=== PATIENT | female | born 1940 | race Caucasian/White ===

== ENCOUNTER 2020-12-08 06:25 | Day surgery (SDC) | payer MEDICARE, OTHER ==
[2020-12-06 16:05] LABS: COVID AG,FIA SOURCE NASOPHARYNGEAL
[~2020-12-08] VITALS: Ht 154.9 cm; Wt 80.9 kg
[~2020-12-08 06:25] MED LIST: SODIUM CHLORIDE 0.9% 1,000 ML ONE
[2020-12-08] MEDS ORDERED: SODIUM CHLORIDE 0.9% 1,000 ML IV ONE (06:30)
[2020-12-08] MEDS ORDERED: ATOR20TA86 PO (08:02)
[2020-12-08] MEDS ORDERED: CETI-450 PO (08:02)
[2020-12-08] MEDS ORDERED: MONT-35 PO (08:02)
[2020-12-08] MEDS ORDERED: METO50 PO (08:02)
[2020-12-08] MEDS ORDERED: BUDE10.2 IH (08:02)
[2020-12-08] MEDS ORDERED: AMLO-257 PO (08:02)
[2020-12-08] MEDS ORDERED: CALC1CAP22 PO (08:02)
[2020-12-08] MEDS ORDERED: IPRA4AER IH (08:02)
[2020-12-08] MEDS ORDERED: HYDR25TA2 PO (08:02)
[2020-12-08] MEDS ORDERED: OMEG-102 PO (08:02)
[2020-12-08] MEDS ORDERED: LISI-894 PO (08:02)
[2020-12-08] MEDS ORDERED: ASCO500 PO (08:02)
[2020-12-08] MEDS ORDERED: ALEN70TA65 PO (08:02)
[2020-12-08] MEDS ORDERED: ASPI-1450 PO (08:02)
[2020-12-08] MEDS ORDERED: PANT-31 PO (08:02)
[2020-12-08] MEDS ORDERED: MIDAZOLAM HCL 5 MG/ML VIAL ONE (08:05)
[2020-12-08] MEDS ORDERED: FentaNYL CITRATE PF 100 MCG/2 ML VIAL ONE (08:05)
[2020-12-08] MEDS ORDERED: MethylPREDNISolone SOD SUCC 125 MG/2 ML VIAL IVP ONE (09:00)
[2020-12-08] MEDS ORDERED: MethylPREDNISolone SOD SUCC 125 MG/2 ML VIAL ONE (09:16)
[2020-12-08 10:15] LABS: BASOPHILS % (AUTO) 0.6 % (0.0-2.0); EOSINOPHILS % (AUTO) 1.7 % (1.0-6.0); HEMATOCRIT 41.8 % (36-46); HEMOGLOBIN 13.4 g/dL (12.0-16.0); LYMPHOCYTES # (AUTO) 2.2 K/uL (1.0-4.8); LYMPHOCYTES % (AUTO) 28.1 % (22.0-44.0); MEAN CORPUSCULAR HEMOGLOBIN 27.1 pg (26.0-34.0); MEAN CORPUSCULAR VOLUME 85 fL (80-100); MONOCYTES # (AUTO) 0.6 K/uL (0.1-1.0); MONOCYTES % (AUTO) 7.3 % (2.0-9.0); NEUTROPHILS % (AUTO) 62.3 % (40.0-70.0); PLATELET COUNT (AUTO) 223 K/uL (150-450); RED BLOOD CELL COUNT(AUTO) 4.93 MIL/uL (4.00-5.20); RED CELL DISTRIBUTION WIDTH 12.7 % (11.5-14.5)
[2020-12-08 10:24] LABS: CALCIUM, TOTAL 8.9 mg/dL (8.8-10.5); CREATININE 0.92 mg/dL (0.60-1.30)
[2020-12-08 10:26] LABS: ALBUMIN 3.6 g/dL (3.4-5.0)
[2020-12-08 11:01] LABS: BILIRUBIN,TOTAL 0.5 mg/dL (0.1-1.0); TOTAL PROTEIN, SERUM 6.8 g/dL (6.4-8.2)
[2020-12-08] MEDS ORDERED: ALBUTEROL SULFATE 2.5 MG/0.5 ML NEB SOLUTION NEB ONE (12:00)
[2020-12-08] MEDS ORDERED: LIDOCAINE 4% 50 ML SOLUTION TP ONE (12:00)
[2020-12-08] MEDS ORDERED: BENZOCAINE 20% 50 MCG/SPRAY 57 GM TP ONE (12:00)
[2020-12-08] MEDS ORDERED: LIDOCAINE 2% 30 ML JELLY TP ONE (12:00)
[2020-12-08] MEDS ORDERED: OXYGEN THERAPY IH SCH (20:00)
== END 2020-12-08 10:30 | disposition home or self-care (01) ==
LOC: SURGERY 06:25
PROVIDERS: ATTEND Internal Medicine Critical Care Medicine
DX: J38.4 Edema of larynx (principal); T78.3XXA Angioneurotic edema, initial encounter; J45.909 Unspecified asthma, uncomplicated; I10 Essential (primary) hypertension; Z79.899 Other long term (current) drug therapy; Y83.8 Other surgical procedures as the cause of abnormal reaction of the patient, or of later complication, without mention of misadventure at the time of the procedure; Z95.0 Presence of cardiac pacemaker; Z98.890 Other specified postprocedural states
CPT/HCPCS: 31623; 31624; 36415; 71045; 80053; 83880; 85025; 87015; 87070; 87077; 87101; 87186; 87205; 87206; 87220; 87426; 88108; 88184; 88185; 88312; C9803; J2250; J2930; J3010; J7030; J7613; Z7610

== ENCOUNTER → 2022-10-18 | Day surgery (SDC) | payer MEDICARE, OTHER ==
[~2022-10-18] VITALS: Ht 160 cm; Wt 75.0 kg
[~2022-10-18] MED LIST changes: +ALEN70TA65 PO; +AMLO-257 PO; +ASCO500 PO; +ASPI-1450 PO; +ATOR20TA86 PO; +BENZOCAINE 20% 50 MCG/SPRAY 57 GM TP ONE; +BUDE10.2 IH; +CALC1CAP22 PO; +CETI-450 PO; +HYDR25TA2 PO; +IPRA4AER IH; +LIDOCAINE 2% 11 ML JELLY TP ONE; +LIDOCAINE 4% 50 ML SOLUTION TP ONE; +LISI-894 PO; +METO50 PO; +MONT-35 PO; +MethylPREDNISolone SOD SUCC 125 MG/2 ML VIAL IVP ONE; +OMEG-102 PO; +PANT-31 PO; +ROSU10TA72 PO; +SODIUM CHLORIDE 0.9% 1,000 ML IV ONE
[2022-10-18 07:20] LABS: COVID AG,FIA SOURCE NASAL SWAB
== END | disposition still patient (30) ==
LOC: SURGERY 06:28
PROVIDERS: ATTEND Internal Medicine Critical Care Medicine
DX: R05.3 Chronic cough (principal); Z20.822 Contact with and (suspected) exposure to COVID-19; I10 Essential (primary) hypertension; J45.909 Unspecified asthma, uncomplicated; E78.00 Pure hypercholesterolemia, unspecified; Z79.82 Long term (current) use of aspirin; Z79.899 Other long term (current) drug therapy
CPT/HCPCS: 31623; 88112; 87101; 87220; 87070; 87186; 31624; 71045; 87015; 87426; 87206; J2930; Q9967; J7030; C9803; Z7610

== ENCOUNTER 2025-01-26 05:58 | Day surgery (SDC) | payer MEDICARE, OTHER ==
[~2025-01-26] VITALS: Ht 157.5 cm; Wt 77.3 kg
[~2025-01-26 05:58] MED LIST changes: -ATOR20TA86 PO; -BENZOCAINE 20% 50 MCG/SPRAY 57 GM TP ONE; -HYDR25TA2 PO; -LIDOCAINE 2% 11 ML JELLY TP ONE; -LIDOCAINE 4% 50 ML SOLUTION TP ONE; -MethylPREDNISolone SOD SUCC 125 MG/2 ML VIAL IVP ONE; -SODIUM CHLORIDE 0.9% 1,000 ML IV ONE; -SODIUM CHLORIDE 0.9% 1,000 ML ONE
[2025-01-26] MEDS ORDERED: BENZOCAINE 20% 50 MCG/SPRAY 57 GM TP ONE (05:59)
[2025-01-26] MEDS ORDERED: LIDOCAINE 4% 50 ML SOLUTION TP ONE (05:59)
[2025-01-26] MEDS ORDERED: LIDOCAINE 2% 11 ML JELLY TP ONE (05:59)
[2025-01-26] MEDS ORDERED: ALBUTEROL SULFATE 2.5 MG/0.5 ML NEB SOLUTION NEB ONE (05:59)
[2025-01-26] MEDS: SODIUM CHLORIDE 0.9% 1,000 ML IV ONE (08:48)
[2025-01-26] MEDS ORDERED: FentaNYL CITRATE PF 100 MCG/2 ML VIAL ONE (09:00)
[2025-01-26] MEDS ORDERED: MIDAZOLAM HCL 2 MG/2 ML VIAL ONE (09:00)
[2025-01-26] MEDS ORDERED: MethylPREDNISolone SOD SUCC 125 MG/2 ML VIAL ONE (09:02)
[2025-01-26 09:15] VITALS: PULSE 78; RESP 16; O2SAT 100
[2025-01-26] MEDS: MethylPREDNISolone SOD SUCC 125 MG/2 ML VIAL IVP ONE (09:50)
== END 2025-01-26 13:05 | disposition home or self-care (01) ==
LOC: SURGERY 05:58
PROVIDERS: ATTEND Internal Medicine Critical Care Medicine
DX: R05.3 Chronic cough (principal); J38.4 Edema of larynx; B37.0 Candidal stomatitis; I10 Essential (primary) hypertension; J45.909 Unspecified asthma, uncomplicated; Z79.899 Other long term (current) drug therapy
CPT/HCPCS: 31623; 87206; 87101; 87220; 87070; 88108; 31624; 94640; 71045; 87015; J3010; J2250; J2919; 87186; J7613; Z7610